=== PATIENT | female | born 1955 | race Caucasian/White ===

== ENCOUNTER 2020-03-06 18:51 | Emergency (ER) | payer BC | END 2020-03-06 21:46 | disposition left against medical advice (07) | LOC: ER1 18:51 | DX: M54.2 Cervicalgia (principal); M25.551 Pain in right hip; M25.561 Pain in right knee; Z53.21 Procedure and treatment not carried out due to patient leaving prior to being seen by health care provider ==

== ENCOUNTER → 2020-03-31 | Outpatient (CLI) | payer OTHER, BC | LOC: KOH-I 11:10 | DX: M25.561 Pain in right knee (principal) | CPT/HCPCS: 73562 ==

== ENCOUNTER → 2020-04-13 | Outpatient (CLI) | payer OTHER | LOC: KOH-I 08:42 | DX: M79.604 Pain in right leg (principal); S83.241A Other tear of medial meniscus, current injury, right knee, initial encounter; M94.261 Chondromalacia, right knee; V89.2XXA Person injured in unspecified motor-vehicle accident, traffic, initial encounter | CPT/HCPCS: 73721 ==

== ENCOUNTER → 2021-04-03 | Outpatient (CLI) | payer OTHER | LOC: KOH-I 12:47 | DX: V89.2XXA Person injured in unspecified motor-vehicle accident, traffic, initial encounter (principal) | CPT/HCPCS: 73562 ==

== ENCOUNTER → 2021-04-19 | Outpatient (CLI) | payer OTHER, BC | LOC: EMI 10:44 | DX: S83.241S Other tear of medial meniscus, current injury, right knee, sequela (principal); M94.261 Chondromalacia, right knee | CPT/HCPCS: 73721 ==

== ENCOUNTER → 2021-07-24 | Outpatient (CLI) | payer OTHER, BC ==
[2021-07-24 15:46] LABS: HEMOGLOBIN 13.1 gm/dl (12.3-15.3); RED BLOOD COUNT 4.64 M/UL (4.00-5.10)
[2021-07-24 16:20] LABS: BUN/CREATININE RATIO 26 (0-10)
== END ==
LOC: LAB 14:46
PROVIDERS: Orthopaedic Surgery
DX: Z01.818 Encounter for other preprocedural examination (principal)
CPT/HCPCS: 36415; 80053; 85025; 93005